=== PATIENT | female | born 1955 | race Caucasian/White ===

== ENCOUNTER → 2016-04-22 | Outpatient (CLI) | payer OTHER ==
[2016-04-22 11:54] LABS: Basophils # (A) 0.1 k/uL (0-0.2); Basophils % (A) 1 %; CH 30.7; CHCM 33.4; Eosinophils # (A) 0.2 k/uL (0-0.7); Eosinophils % (A) 3 %; HCT 41.1 % (34.0-46.0); HDW 2.45; HGB 13.5 gm/dL (11.4-16.0); Luc # (Auto) 0.16; Luc % (Auto) 3; Lymphocytes # (A) 2.1 k/uL (1.0-4.8); Lymphocytes % (A) 35 %; MCH 30.4 pg (25.0-35.0); MCHC 32.9 g/dL (31.0-37.0); MCV 92.2 fL (80.0-100.0); Mean Platelet Volume 7.1; Monocytes # (A) 0.4 k/uL (0-1.0); Monocytes % (A) 7 %; Neutrophils # (A) 3.1 k/uL (1.3-7.7); Neutrophils % (A) 52 %; RBC 4.46 m/uL (3.80-5.40); RDW 12.3 % (11.5-15.5); WBC 6.1 k/uL (3.8-10.6); WBC (Perox) 6.21
== END | disposition home or self-care (01) ==
LOC: LABPAT 11:19
PROVIDERS: ATTEND Obstetrics & Gynecology
DX: Z01.810 Encounter for preprocedural cardiovascular examination (principal); N89.5 Stricture and atresia of vagina
CPT/HCPCS: 85025

== ENCOUNTER 2016-04-28 07:04 | Day surgery (SDC) | payer OTHER ==
[2016-04-18 11:57] VITALS: BMI 28.8
[~2016-04-28 07:04] MED LIST: DEXAMETHASONE SOD PHOSPHATE 10 MG/ML 1 ML VIAL IV ONE; HYDROmorphone 1 MG/ML 1 ML SYRINGE IVP PRN; LACTATED RINGERS 1,000 ML IV SCH; LIDOCAINE 1% 20 ML VIAL (10MG/ML) FOR IV START INTRADERMA PRN; MIDAZOLAM 2 MG/2 ML VIAL IV PRN; ONDANSETRON 4 MG/2 ML VIAL IVP ONE; ceFAZolin 2 GM in SODIUM CHLORIDE 0.9% 100 ML IVPB ONE
[2016-04-28] MEDS ORDERED: ceFAZolin 1,000 MG VIAL ONE (08:29)
[2016-04-28] MEDS ORDERED: SODIUM CHLORIDE 0.9% 100 ML BAG ONE (08:29)
[2016-04-28] MEDS ORDERED: MIDAZOLAM 2 MG/2 ML VIAL ONE (08:29)
[2016-04-28] MEDS ORDERED: fentaNYL (PF) 50 MCG/ML 2 ML AMP ONE (08:29)
[2016-04-28] MEDS ORDERED: SUCCINYLCHOLINE CHLORIDE 100 MG/5 ML SYR IV ONE (08:29)
[2016-04-28] MEDS ORDERED: PROPOFOL 10 MG/ML 20 ML VIAL IV ONE (08:29)
[2016-04-28] MEDS ORDERED: VASOPRESSIN 20 UNIT/ML 1 ML VIAL SQ ONE (08:47)
[2016-04-28] MEDS ORDERED: BACITRACIN 500 UNIT/GM OINT 28.4 GM TUBE TOPICAL ONE (08:54)
--- NOTE | 2016-04-28 09:04 | P.OP ---
Date of Procedure: 04/28/16 Preoperative Diagnosis: Vaginal adhesion Postoperative Diagnosis: Same Procedure(s) Performed: Lysis of vaginal adhesion Surgeon: Cindy Jaime Estimated Blood Loss (ml): 0 IV fluids (ml): 500 Urine output (ml): 25 Pathology: none sent Condition: stable Disposition: PACU Operative Findings: 1 cm Thick vaginal adhesion extending from the anterior to the posterior vaginal wall approximately 2 cm up the vaginal canal from the hymeneal remnant. With lysis, the vaginal cuff is easily visualized and vaginal length and caliber are within normal limits with a history of vaginal hysterectomy. Description of Procedure: After the patient was met preoperatively and all questions were answered, she was taken to the operating room where anesthetic was administered without incident. She was positioned, prepped and draped in the dorsal lithotomy position. The bladder was drained for approximately 25 mL of clear urine. Exam under anesthetic the anterior to posterior vaginal adhesion is easily palpable. Unable to insert a digit past the adhesion laterally on both sides to the apex of the vaginal cuff. The adhesions this proximally 1 cm thick. A bent uterine sound was passed around the adhesion drawing it forward where it can be easily visualized. Dilute vasopressin solution is infused into the adhesion. There is not appear to be any involvement of other structures, specifically bowel or bladder tissue. Scalpel is utilized to cut the adhesion in a horizontal fashion. The anterior vaginal mucosa over the adhesion lysis site is reapproximated with interrupted stitch of 3-0 Vicryl suture. Similarly the posterior vaginal mucosa is superficially closed with 2 interrupted stitches. Retractors were utilized to completely visualize the vaginal canal which appears normal. On digital examination the vaginal length and caliber palpate normal for a postoperative vaginal hysterectomy state. Bacitracin ointment is applied over the anterior and posterior suture sites. The patient was then awoken from anesthetic and transported to the recovery area in stable condition. All counts were correct.
[2016-04-28 09:12] VITALS: TEMP 97.6
[2016-04-28 10:19] VITALS: RESP 18
[2016-04-28 10:44] VITALS: BP 126/85; PULSE 67
== END 2016-04-28 10:59 | disposition home or self-care (01) ==
LOC: OR 07:04
PROVIDERS: ATTEND Obstetrics & Gynecology
DX: N99.2 Postprocedural adhesions of vagina (principal); Z90.710 Acquired absence of both cervix and uterus; J45.909 Unspecified asthma, uncomplicated; K21.9 Gastro-esophageal reflux disease without esophagitis; E07.9 Disorder of thyroid, unspecified; Z79.51 Long term (current) use of inhaled steroids; Z79.899 Other long term (current) drug therapy; Z88.8 Allergy status to other drugs, medicaments and biological substances; Z91.018 Allergy to other foods; Z91.09 Other allergy status, other than to drugs and biological substances
CPT/HCPCS: 58999; J2250; J1100; J2405; J0690; J3010; J0330; J2704

== ENCOUNTER 2016-06-04 13:28 | Inpatient (IN) | payer OTHER ==
[2016-06-04] MEDS ORDERED: HEPARIN SODIUM,PORCINE 10,000 UNIT/ML 1 ML VIAL IV ONE (14:08)
--- NOTE | 2016-06-04 14:11 | ED ---
General Adult HPI - General Chief complaint: Shortness of Breath Stated complaint: Dr Campa/Ajay Clot poss to lungs Time Seen by Provider: 06/04/16 13:50 Source: patient, RN notes reviewed Mode of arrival: wheelchair Limitations: no limitations - History of Present Illness Initial comments: This is a 60-year-old female who presents to the emergency department because she has been told after having a CTA that she has a pulmonary embolism in her left lung. Patient states she's had a chronic cough since last year but more recently it seems to have gotten a little worse and she did have very procedure done to remove vaginal adhesions in April so her primary ordered a CTA and it showed a pulmonary embolism. Patient preferred to come to our hospitalist she came to our hospital for further evaluation. Patient states she does feel short of breath. Patient denies any chest pain or palpitations. Patient denies any fever or chills. Patient denies any lightheadedness or dizziness. Patient denies abdominal pain patient denies nausea vomiting diarrhea. - Related Data Home Medications Medication Instructions Recorded Confirmed Thyroid,Pork [[place] Thyroid] 15 mg PO DAILY 01/09/15 04/28/16 Albuterol Inhaler [Ventolin Hfa 2 puff INHALATION DIRECTED PRN 04/18/1604/28 Inhaler] B Complex-Vit C-Vit E-Zinc [Z-Bec] 1 tab PO DAILY 04/18/16 04/28/16 Bifidobacterium Infantis [Align] 4 mg PO DAILY 04/18/16 04/28/16 Biotin 5 mg PO DAILY 04/18/16 04/28/16 Estradiol Cream [Estrace Cream] 1 applic TOPICAL [place]UTUTH 04/18/16 04/28/16 Famotidine 20 mg PO DAILY 04/18/16 04/28/16 Fluticasone Propionate [Flovent 1 spr EA NOSTRIL DAILY 04/18/16 04/28/16 Hfa 44 mcg] Gabapentin [Neurontin] 300 mg PO DAILY 04/18/16 04/28/16 Imipramine [Tofranil] 7.5 mg PO DAILY 04/18/16 04/28/16 Meloxicam [Mobic] 7.5 mg PO DAILY 04/18/16 04/28/16 diphenhydrAMINE HCL [Benadryl] 25 mg PO DAILY 04/18/16 04/28/16 Previous Rx's Medication Instructions Recorded Estradiol Cream [Estrace Cream 1 gm VAGINAL DAILY #1 tube 04/28/16 0.01%] Allergies Allergy/AdvReac Type Severity Reaction Status Date / Time aloe vera Allergy Anaphylaxis Verified 06/04/16 13:50 diazepam [From Valium] AdvReac Hallucinati Verified 06/04/16 13:50 ons ibuprofen [From Motrin] AdvReac Hallucinati Verified 06/04/16 13:50 ons rofecoxib [From Vioxx] AdvReac Nausea & Verified 06/04/16 13:50 Vomiting & Diarrhea [place]IW[place] Allergy Anaphylaxis Uncoded 06/04/16 13:50 MINT Allergy Rash/Hives Uncoded 06/04/16 13:50 Review of Systems ROS Statement: Those systems with pertinent positive or pertinent negative responses have been documented in the HPI. ROS Other: All systems not noted in ROS Statement are negative. Past Medical History Past Medical History: Asthma, GERD/Reflux, Musculoskeletal Disorder Additional Past Medical History / Comment(s): RSD (REFLEX SYMPATHETIC DYSTROPHY) History of Any Multi-Drug Resistant Organisms: None Reported Past Surgical History: Hernia Repair, Hysterectomy, Orthopedic Surgery, Tonsillectomy Additional Past Surgical History / Comment(s): "nerve clipped in right foot", shoulder sx, knee arthroscopy, RECTOCELE, CYSTOCELE REPAIR, LEFT ANKLE SX, MOLES REMOVED, vaginal adhesion removed Additional Past Anesthesia/Blood Transfusion Reaction / Comment(s): hx of hard time waking up Past Psychological History: No Psychological Hx Reported Smoking Status: Never smoker Past Alcohol Use History: Occasional Past Drug Use History: None Reported - Past Family History Father Family Medical History: Cancer Sister(s) Family Medical History: Cancer General Exam - General Exam Comments Initial Comments: GENERAL: Patient is well-developed and well-nourished. Patient is nontoxic and well- hydrated and is in no acute distress. ENT: Neck is soft and supple. No significant lymphadenopathy is noted. Oropharynx is clear. Moist mucous membranes. Neck has full range of motion without eliciting any pain. EYES: The sclera were anicteric and conjunctiva were pink and moist. Extraocular movements were intact and pupils were equal round and reactive to light. Eyelids were unremarkable. PULMONARY: Unlabored respirations. Good breath sounds bilaterally. No audible rales rhonchi or wheezing was noted. CARDIOVASCULAR: There is a regular rate and rhythm without any murmurs gallops or rubs. ABDOMEN: Soft and nontender with normal bowel sounds. No palpable organomegaly was noted. There is no palpable pulsatile mass. SKIN: Skin is clear with no lesions or rashes and otherwise unremarkable. NEUROLOGIC: Patient is alert and oriented x3. Cranial nerves II through XII are grossly intact. Motor and sensory are also intact. Normal speech, volume and content. Symmetrical smile. MUSCULOSKELETAL: Normal extremities with adequate strength and full range of motion. No lower extremity swelling or edema. No calf tenderness. LYMPHATICS: No significant lymphadenopathy is noted PSYCHIATRIC: Normal psychiatric evaluation. Limitations: no limitations Course Vital Signs 06/04/16 06/04/16 13:46 15:26 Temperature 97.8 F 97.9 F Pulse Rate 74 69 Respiratory 18 16 Rate Blood Pressure 158/74 145/75 O2 Sat by Pulse 97 98 Oximetry Medical Decision Making - Medical Decision Making EKG shows normal sinus rhythm at 61 bpm DC interval is 176 QRS is 78 QT interval 396 QTC is 398. Patient has no ST segment elevation or depression or T -wave abdomen is noted. I started the patient on high-dose heparin because of the PE I spoke with Dr. Wadsworth I admitted the patient I wrote admitting orders. I consult to Dr. Coelho - Lab Data Result diagrams: 06/04/16 14:00 06/04/16 14:00 Lab Results 06/04/16 06/04/16 06/04/16 Range/Units 14:00 14:00 14:00 WBC 5.3 (3.8-10.6) k/uL RBC 4.45 (3.80-5.40) m/uL Hgb 13.5 (11.4-16.0) gm/dL Hct 40.3 (34.0-46.0) % MCV 90.6 (80.0-100.0) fL MCH 30.4 (25.0-35.0) pg MCHC 33.6 (31.0-37.0) g/dL RDW 12.8 (11.5-15.5) % Plt Count 303 (150-450) k/uL Neutrophils % 32 % Lymphocytes % 52 % Monocytes % 7 % Eosinophils % 5 % Basophils % 1 % Neutrophils # 1.7 (1.3-7.7) k/uL Lymphocytes # 2.7 (1.0-4.8) k/uL Monocytes # 0.4 (0-1.0) k/uL Eosinophils # 0.3 (0-0.7) k/uL Basophils # 0.0 (0-0.2) k/uL Manual Slide Review Performed RBC Morphology Normal PT (9.0-12.0) sec INR (<1.1) APTT (22.0-30.0) sec Sodium 140 (137-145) mmol/L Potassium 4.1 (3.5-5.1) mmol/L Chloride 103 (98-107) mmol/L Carbon Dioxide 27 (22-30) mmol/L Anion Gap 10 mmol/L BUN 22 H (7-17) mg/dL Creatinine 0.94 (0.52-1.04) mg/dL Est GFR (MDRD) Af Amer >60 (>60 ml/min/1.73 sqM) Est GFR (MDRD) Non-Af >60 (>60 ml/min/1.73 sqM) Glucose 73 L (74-99) mg/dL Calcium 9.9 (8.4-10.2) mg/dL Total Bilirubin 0.5 (0.2-1.3) mg/dL AST 25 (14-36) U/L ALT 30 (9-52) U/L Alkaline Phosphatase 93 (38-126) U/L Total Creatine Kinase 93 (30-135) U/L CK-MB (CK-2) 0.7 (0.0-2.4) ng/mL CK-MB (CK-2) Rel Index 0.8 Troponin I <0.012 (0.000-0.034) ng/mL Total Protein 7.1 (6.3-8.2) g/dL Albumin 4.2 (3.5-5.0) g/dL 06/04/16 Range/Units 14:00 WBC (3.8-10.6) k/uL RBC (3.80-5.40) m/uL Hgb (11.4-16.0) gm/dL Hct (34.0-46.0) % MCV (80.0-100.0) fL MCH (25.0-35.0) pg MCHC (31.0-37.0) g/dL RDW (11.5-15.5) % Plt Count (150-450) k/uL Neutrophils % % Lymphocytes % % Monocytes % % Eosinophils % % Basophils % % Neutrophils # (1.3-7.7) k/uL Lymphocytes # (1.0-4.8) k/uL Monocytes # (0-1.0) k/uL Eosinophils # (0-0.7) k/uL Basophils # (0-0.2) k/uL Manual Slide Review RBC Morphology PT 11.0 (9.0-12.0) sec INR 1.1 (<1.1) APTT 23.0 (22.0-30.0) sec Sodium (137-145) mmol/L Potassium (3.5-5.1) mmol/L Chloride (98-107) mmol/L Carbon Dioxide (22-30) mmol/L Anion Gap mmol/L BUN (7-17) mg/dL Creatinine (0.52-1.04) mg/dL Est GFR (MDRD) Af Amer (>60 ml/min/1.73 sqM) Est GFR (MDRD) Non-Af (>60 ml/min/1.73 sqM) Glucose (74-99) mg/dL Calcium (8.4-10.2) mg/dL Total Bilirubin (0.2-1.3) mg/dL AST (14-36) U/L ALT (9-52) U/L Alkaline Phosphatase (38-126) U/L Total Creatine Kinase (30-135) U/L CK-MB (CK-2) (0.0-2.4) ng/mL CK-MB (CK-2) Rel Index Troponin I (0.000-0.034) ng/mL Total Protein (6.3-8.2) g/dL Albumin (3.5-5.0) g/dL Critical Care Time Critical Care Time: Yes Total Critical Care Time: 35 Disposition Clinical Impression: Pulmonary embolism Disposition: ADMITTED IP TO THIS [facility] Time of Disposition: 15:47
[2016-06-04] MEDS: HEPARIN SODIUM,PORCINE/D5W PMX 25,000 UNIT in DEXTROSE/WATER 1 500ML.BAG IV SCH (14:33)
[2016-06-04 14:36] LABS: Basophils % (A) 1 %; CHCM 34.4; Eosinophils # (A) 0.3 k/uL (0-0.7); Eosinophils % (A) 5 %; HCT 40.3 % (34.0-46.0); HGB 13.5 gm/dL (11.4-16.0); Luc % (Auto) 4; Lymphocytes # (A) 2.7 k/uL (1.0-4.8); Lymphocytes % (A) 52 %; MCH 30.4 pg (25.0-35.0); MCHC 33.6 g/dL (31.0-37.0); MCV 90.6 fL (80.0-100.0); Mean Platelet Volume 6.7; Monocytes # (A) 0.4 k/uL (0-1.0); Monocytes % (A) 7 %; Neutrophils # (A) 1.7 k/uL (1.3-7.7); Neutrophils % (A) 32 %; RBC 4.45 m/uL (3.80-5.40); RDW 12.8 % (11.5-15.5); WBC 5.3 k/uL (3.8-10.6); WBC (Perox) 5.01
[2016-06-04 14:44] LABS: INR 1.1 (<1.1)
[2016-06-04 14:49] LABS: ALT 30 U/L (9-52); AST 25 U/L (14-36); Alkaline Phosphatase 93 U/L (38-126); Anion Gap 10 mmol/L; Blood Urea Nitrogen 22 mg/dL (7-17); Calcium 9.9 mg/dL (8.4-10.2); Carbon Dioxide 27 mmol/L (22-30); Chloride 103 mmol/L (98-107); Glucose 73 mg/dL (74-99); Non-African American GFR(MDRD) >60 (>60 ml/min/1.73 sqM); Potassium 4.1 mmol/L (3.5-5.1); Sodium 140 mmol/L (137-145); Total Bilirubin 0.5 mg/dL (0.2-1.3); Total Protein 7.1 g/dL (6.3-8.2)
[2016-06-04 14:56] LABS: Creatine Kinase 93 U/L (30-135)
[2016-06-04 15:08] LABS: Creatine Kinase MB 0.7 ng/mL (0.0-2.4); Troponin I <0.012 ng/mL (0.000-0.034)
[2016-06-04 15:14] LABS: Manual Review Performed; RBC Morphology Normal
[2016-06-04] MEDS ORDERED: SODIUM CHLORIDE 0.9% 1,000 ML IV ONE (15:47)
[2016-06-04] MEDS ORDERED: MELATONIN 5 MG TABLET PO SCH (21:45)
[2016-06-04] MEDS ORDERED: CLOTRIMAZOLE 1% CREAM 15 GM TUBE TOPICAL PRN (22:39)
--- NOTE | 2016-06-04 23:13 | HP ---
DATE OF ADMISSION: 06/04/2016 PRESENTING COMPLAINT: Cough. HISTORY OF PRESENTING COMPLAINT: This is a 60-year-old patient of Dr. Amaral. Chronic stable medical conditions include asthma, GERD, mitral valve prolapse, RSD, hypothyroid, osteoarthritis. Patient underwent vaginal scar tissue removal and a week following after that after she got out of the hospital, she is having an increasing amount of cough. Patient had a chest CT angiogram done and was found to have a small PE; hence, patient was transferred down here from [facility], started on IV heparin. Patient did have some swelling of the legs earlier in the week. REVIEW OF SYSTEMS: CONSTITUTIONAL: Tired. HEENT: None. RESPIRATORY: As above. CARDIOVASCULAR: None. GASTROINTESTINAL: Heartburn. GENITOURINARY: None. MUSCULOSKELETAL: Pain in multiple joints. DERMATOLOGICAL: None. HEMATOLOGICAL: None. LYMPHATIC: None. PSYCHIATRY: None. NEUROLOGICAL: None. Past history of asthma, GERD, mitral valve prolapse, osteoarthritis of the hands, hypothyroid, reflex sympathetic dystrophy, diverticulitis, irritable bowel syndrome, urinary incontinence, rectocele, hemorrhoids. PAST SURGICAL HISTORY: Bladder surgery, hernia repair, hysterectomy, tonsillectomy, shoulder surgery, rectocele, cystocele repair, vaginal adhesions removed, umbilical hernia repair. SOCIAL HISTORY: . Alcohol occasionally. No smoking. Family history of cancer. HOME MEDICATIONS: 1. Tofranil 25 mg p.o. daily. 2. Flovent HFA 2 puffs b.i.d. 3. Lotrimin 1 application topical daily p.r.n. 4. Estrace 0.01% vaginal every 7 days. 5. Calcium with Vitamin D3 1 tablet daily. 6. Ventolin HFA 2 puffs q.4 p.r.n. 7. Flonase 1 spray each nostril daily. 8. Pepcid 20 mg p.o. daily. 9. Biotin 5 mg p.o. daily. 10. Align 4 mg p.o. daily. 11. Benadryl 50 mg p.o. q.h.s. 12. Neurontin 300 mg p.o. daily. 13. Z-Douglas 1 tablet p.o. daily. 14. [place] thyroid 30 mg p.o. daily. 15. Mobic 7.5 mg p.o. daily. ALLERGIES TO ALOE VERA, ( ), VALIUM, IBUPROFEN, VIOXX, ( ). On examination, temperature 97.4, pulse 55, respirations 18, blood pressure 162/81, pulse ox 98% on 2L. GENERAL APPEARANCE: Elderly female; sitting up, not in distress. EYES: Pupils equal. Conjunctivae normal. HEENT: External appearance of nose and ears normal. Oral cavity normal. NECK: JVD not raised. Mass not palpable. RESPIRATORY: Effort normal. LUNGS: Fair air entry. CARDIOVASCULAR: First and second sounds normal. Minimal edema. ABDOMEN: Soft, nontender. Liver and spleen not palpable. LYMPHATIC: No lymph node palpable in neck or axillae. PSYCHIATRY: Alert and oriented x3. Mood and affect normal. NEUROLOGICAL: Pupils equal. Cranial nerves grossly intact. Power and sensation grossly intact. INVESTIGATIONS: White count 5.3, hemoglobin 13.5. Potassium 4.1. BUN 22, creatinine 0.94. CT scan of the chest revealed a small PE. ASSESSMENT: 1. Acute pulmonary embolism a week following vaginal surgery. 2. Mild intermittent asthma. 3. Gastroesophageal reflux disease. 4. Primary osteoarthritis of the hands and knees. 5. Hypothyroidism. 6. Reflex sympathetic dystrophy, chronic of the right leg. 7. Chronic urinary stress incontinence. PLAN: Patient's home medication are resumed, put on IV heparin. Care was discussed with the patient. Pulmonary was consulted. Questions were answered.
[2016-06-04 23:41] VITALS: RESP 16
[2016-06-05 03:13] VITALS: PULSE 74
[2016-06-05] MEDS: HEPARIN SODIUM,PORCINE/D5W PMX 25,000 UNIT in DEXTROSE/WATER 1 500ML.BAG IV SCH (07:36)
[2016-06-05] MEDS ORDERED: GABAPENTIN 300 MG CAP PO SCH (09:00)
[2016-06-05] MEDS ORDERED: IMIPRAMINE 25 MG TAB PO SCH (09:00)
[2016-06-05] MEDS ORDERED: FAMOTIDINE 20 MG TAB PO SCH (09:00)
[2016-06-05] MEDS ORDERED: THYROID, PORK 30 MG TAB PO SCH (09:00)
--- NOTE | 2016-06-05 10:51 | US ---
EXAMINATION TYPE: US venous doppler duplex LE BI DATE OF EXAM: 06/05/2016 9:52 AM COMPARISON: NONE CLINICAL HISTORY: poss dvt. Left leg numbness, PE diagnosed yesterday, SOB, Patient on Heparin SIDE PERFORMED: bilateral VESSELS IMAGED: External Iliac Vein (EIV) Common Femoral Vein Deep Femoral Vein Greater Saphenous Vein * Femoral Vein Popliteal Vein Small Saphenous Vein * Proximal Calf Veins (* superficial vessels) FINDINGS: Right Leg: NO evidence of DVT Left Leg: NO evidence of DVT. Scanned left outer thigh (patient feels a lump), hyperechoic area note d = 2.4 x 1.0 x 2.2cm IMPRESSION: 1. No evidence of DVT as visualized. 2. Hyperechoic mass within the subcutaneous tissues most likely related to lipoma. Correlate clinical ly and if necessary with MRI.
--- NOTE | 2016-06-05 11:50 | P.CNPUL ---
History of Present Illness Consult date: 06/05/16 Reason for consult: dyspnea, chest pain, COPD Chief complaint: Shortness of breath, cough, chest pain History of present illness: This is a 60-year-old female who presented to the emergency department because she's been told on a CT angiogram that she had a pulmonary embolism. Apparently was in her left lung. She apparently saw her nurse practitioner physicians esl instructional assistant up in [facility]. She apparently was being worked up there and apparently had a CT pulmonary embolism. She was sent down here for evaluation. She was seen in the emergency room by our doctors. Feeling better today. She does give a history of spontaneous abortions in the past. 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 That raises the specter of antiphospholipid antibody syndrome. In addition, she really had no other major triggers or provoking factors at this time. Her nurse practitioner/PA worked with Dr. Amaral. We will go ahead and request a consultation with hematology. The patient can decide between a factor X a inhibitor versus Coumadin. A friend of the patient thinks that Coumadin might be better for her because she falls a lot and should she start bleeding, we would be able to reverse the Coumadin much more quickly. Review of Systems A 12 point review of system is positive for shortness of breath cough and chest pain. No symptoms have improved. She seemed pretty comfortable. Not in any supplemental oxygen. Past Medical History Past Medical History: Asthma, GERD/Reflux, Mitral Valve Prolapse (MVP), Musculoskeletal Disorder, Osteoarthritis (OA), Pneumonia, Thyroid Disorder Additional Past Medical History / Comment(s): 06-04-16 PE, RSD (REFLEX SYMPATHETIC DYSTROPHY), RHEUMATIC FEVER A CHILD, MURMUR, BRONCHITIS, DIVERTICULITIS, IBS, UTI, INCONT OF URINE, BEGINNINGS OF GLAUCOMA, HAS HAD RECTAL BLEEDING IN PAST HX RECTOCELE,HEMORRHOIDS,"CONSTIPATION/ CAUSED A SMALL TEAR IN RECTOCELE HAD SX TO REPAIR" History of Any Multi-Drug Resistant Organisms: None Reported Past Surgical History: Bladder Surgery, Hernia Repair, Hysterectomy, Orthopedic Surgery, Tonsillectomy Additional Past Surgical History / Comment(s): "nerve clipped in right foot", shoulder sx, knee arthroscopy, RECTOCELE, CYSTOCELE REPAIR, LEFT ANKLE CYST REMOVED, MOLES REMOVED-BENIGN, vaginal adhesion removed, UMBILICAL HERNIA, RT KNEE MENISCUS.LATERAL RELEASE Additional Past Anesthesia/Blood Transfusion Reaction / Comment(s): hx of hard time waking up Past Psychological History: No Psychological Hx Reported Smoking Status: Never smoker Past Alcohol Use History: Occasional Past Drug Use History: None Reported - Past Family History Father Family Medical History: Cancer Sister(s) Family Medical History: Cancer Medications and Allergies Home Medications Medication Instructions Recorded Confirmed Type Albuterol Inhaler [Ventolin Hfa 2 puff INHALATION RT-Q4H PRN 04/18/16 06/04/16 History Inhaler] B Complex-Vit C-Vit E-Zinc [Z-Bec] 1 tab PO DAILY 04/18/16 06/04/16 History Bifidobacterium Infantis [Align] 4 mg PO DAILY 04/18/16 06/04/16 History Biotin 5 mg PO DAILY 04/18/16 06/04/16 History Famotidine 20 mg PO DAILY 04/18/16 06/04/16 History Fluticasone Propionate [Flovent 2 puff INHALATION RT-BID 04/18/16 06/04/16 History Hfa 44 mcg] Gabapentin [Neurontin] 300 mg PO DAILY 04/18/16 06/04/16 History Meloxicam [Mobic] 7.5 mg PO DAILY 04/18/16 06/04/16 History diphenhydrAMINE HCL [Benadryl] 50 mg PO HS 04/18/16 06/04/16 History Calcium Carbonate/Vitamin D3 1 tab PO DAILY 06/04/16 06/04/16 History [Calcium 600-Vit D3 200 Tablet] Clotrimazole Cream [Lotrimin Cream] 1 applic TOPICAL DAILY PRN 06/04/16 History Estradiol Cream [Estrace Cream 1 applic VAGINAL Q7D 06/04/16 06/04/16 History 0.01%] Fluticasone Nasal [place] [Flonase 1 spr EA NOSTRIL DAILY 06/04/16 06/04/16 History Nasal [place]] Imipramine HCl [Tofranil] 25 mg PO DAILY 06/04/16 06/04/16 History Thyroid, Pork [[place] Thyroid] 30 mg PO DAILY 06/04/16 06/04/16 History Allergies Allergy/AdvReac Type Severity Reaction Status Date / Time aloe vera Allergy Anaphylaxis Verified 06/04/16 15:59 kiwi Allergy Anaphylaxis Verified 06/04/16 15:59 diazepam [From Valium] AdvReac Hallucinati Verified 06/04/16 15:59 ons ibuprofen [From Motrin] AdvReac Hallucinati Verified 06/04/16 15:59 ons rofecoxib [From Vioxx] AdvReac Nausea & Verified 06/04/16 15:59 Vomiting & Diarrhea MINT Allergy Rash/Hives Uncoded 06/04/16 13:50 Physical Exam Osteopathic Statement: *. No significant issues noted on an osteopathic structural exam other than those noted in the History and Physical/Consult. Vitals: Vital Signs Temp Pulse Pulse Resp BP BP Pulse Ox 06/05/16 07:41 97.6 F 65 16 125/76 98 06/05/16 03:12 97.0 F L 74 16 131/72 99 06/04/16 23:39 70 16 117/62 98 06/04/16 20:00 97.1 F L 83 18 116/70 97 06/04/16 16:52 97.4 F L 65 18 163/81 98 Intake and Output 06/04/16 06/05/16 06/05/16 22:59 06:59 14:59 Intake Total 197.45 200.012 273.858 Output Total 1650 Balance 197.45 -1449.988 273.858 Intake: Intake, IV Titration 197.45 200.012 33.858 Amount Heparin Sodium,Porcine/ 197.45 200.012 33.858 D5w Pmx 25,000 unit In Dextrose/Water 1 500ml. bag @ 18 UNITS/KG/HR 28. 41 mls/hr IV .[id number] [facility] Rx#:[id number] Oral 240 Output: Urine 1650 Other: # Voids 2 Weight 78.7 kg No acute distress, oriented 3. HEENT examination is grossly unremarkable. Next Neck is Supple. Full range of motion. No adenopathy. Neck veins are flat. Cardiovascular examination reveals regular rhythm rate. S1 and S2 normal. There is no murmur. Lungs reveal relatively clear breath sounds. No wheezes rhonchi or crackles. Abdomen soft. Extremities are intact. Results - Laboratory Findings CBC and BMP: 06/04/16 14:00 06/04/16 14:00 PT/INR, D-dimer PT 11.0 sec (9.0-12.0) 06/04/16 14:00 INR 1.1 (<1.1) 06/04/16 14:00 Abnormal lab findings: Abnormal Labs 06/04/16 06/05/16 06/05/16 20:40 03:08 10:19 APTT 140.9 H* 78.4 H 68.2 H - Diagnostic Findings Chest x-ray: image reviewed CT scan - chest: image reviewed (X-rays labs and medications are reviewed.) Assessment and Plan (1) Pulmonary embolism Status: Acute Plan: Plan The patient's currently on IV heparin. She's trying to make a decision between a factor X a inhibitor versus Coumadin which is of vitamin K antagonist. There is some advantages and disadvantages of both. I explained those to her today. In addition, we will have hematology see her. This is because of apparently she 's had multiple spontaneous abortions. He raises the possibility of antiphospholipid antibody syndrome. I think she should be treated for about 6 months. If this appears to be an unprovoked clot. Additional recommendations suggestions are forthcoming. I did give the family my card. They should follow with me so we can do a follow-up CAT scan in 8-10 weeks after the first CAT scan. Additional recommendations and suggestions are forthcoming. Time with Patient: Greater than 30
[2016-06-05 12:20] VITALS: BP 141/76; TEMP 98.1
[2016-06-05] MEDS ORDERED: RIVAROXABAN 15 MG TAB PO SCH (17:30)
[2016-06-06 07:10] LABS: Cardiolipin Ab IgG <9.0 GPL (<15); Cardiolipin Ab IgM <9.0 MPL (<12.5)
[2016-06-06] MEDS ORDERED: THYROID, PORK 30 MG TAB PO SCH (07:30)
[2016-06-06] MEDS ORDERED: GABAPENTIN 300 MG CAP PO SCH (07:30)
--- NOTE | 2016-06-06 09:40 | DS ---
DATE OF ADMISSION: 06/04/2016 DATE OF DISCHARGE: 06/05/2016 FINAL DIAGNOSIS(ES): 1. Acute pulmonary embolism in a week following vaginal surgery that is provoked pulmonary embolism. 2. Mild intermittent asthma. 3. Gastroesophageal reflux disease. 4. Primary osteoarthritis of the hands and knees. 5. Hypothyroidism. 6. Reflex sympathetic dystrophy, chronic of the right leg. 7. Chronic urinary stress incontinence. HOSPITAL COURSE: The patient following a vaginal scar tissue surgery a week following having more cough, presented to us, CT scan confirmed PE. The patient has a history of some miscarriages previously; hence, hematology consult was done. Dr. Zaman has ordered some blood work and will see the patient as an outpatient. The patient is doing well. On exam, lungs are clear. CARDIOVASCULAR: First and second seconds are normal. DISCHARGE MEDICATIONS: 1. Ventolin HFA 2 puffs q.4 p.r.n. 2. Z-Douglas 1 tablet p.o. daily. 3. ( ) 4 mg daily. 4. Biotin 5 mg p.o. daily. 5. Pepcid 20 mg p.o. daily. 6. Flovent 2 puffs b.i.d. 7. Neurontin 300 mg p.o. daily. 8. Calcium 600 mg Vitamin D3 1 tablet daily. 9. Lotrimin topical daily p.r.n. 10. Estrace vaginal q.7 days. 11. Flonase one spray each nostril daily. 12. Tofranil 25 mg p.o. daily. 13. [place] thyroid 30 mg p.o. daily. 14. Melatonin 5 mg p.o. q.h.s. 15. Xarelto 15 mg p.o. b.i.d. with meals and then 20 milligrams a day. Follow-up with Dr. Amaral in 3 days. Follow up with Dr. Zaman in 10 days. Care was discussed with the patient. Discharge planning more than 35 minutes.
[2016-06-06 15:01] LABS: Hexagonal Phase Neutralization Negative (Negative)
[2016-06-14 05:21] LABS: Mis test requested (Blood) Beta-2 Glycoprot 1Ab
== END 2016-06-05 19:15 | disposition home or self-care (01) | DRG 300 ==
LOC: EC 13:28 → 6SEL 15:47
PROVIDERS: ADMIT Hospitalist; ATTEND Hospitalist
DX: T81.718A Complication of other artery following a procedure, not elsewhere classified, initial encounter (principal); G90.521 Complex regional pain syndrome I of right lower limb; I26.99 Other pulmonary embolism without acute cor pulmonale; E03.9 Hypothyroidism, unspecified; J45.20 Mild intermittent asthma, uncomplicated; I34.1 Nonrheumatic mitral (valve) prolapse; R60.0 Localized edema; M17.0 Bilateral primary osteoarthritis of knee; K58.9 Irritable bowel syndrome, unspecified; N39.3 Stress incontinence (female) (male); R29.6 Repeated falls; K21.9 Gastro-esophageal reflux disease without esophagitis; M19.041 Primary osteoarthritis, right hand; M19.042 Primary osteoarthritis, left hand; K64.9 Unspecified hemorrhoids; H40.9 Unspecified glaucoma; Z90.710 Acquired absence of both cervix and uterus; Z91.81 History of falling; Z98.890 Other specified postprocedural states; Z87.01 Personal history of pneumonia (recurrent); Z87.440 Personal history of urinary (tract) infections; Z80.9 Family history of malignant neoplasm, unspecified; Z87.09 Personal history of other diseases of the respiratory system; Z86.19 Personal history of other infectious and parasitic diseases; Z87.19 Personal history of other diseases of the digestive system; Z88.6 Allergy status to analgesic agent; Z88.8 Allergy status to other drugs, medicaments and biological substances; Z91.018 Allergy to other foods; Z91.048 Other nonmedicinal substance allergy status; Z87.42 Personal history of other diseases of the female genital tract; Z79.899 Other long term (current) drug therapy; Z79.51 Long term (current) use of inhaled steroids; Z79.890 Hormone replacement therapy; Z79.1 Long term (current) use of non-steroidal anti-inflammatories (NSAID)
CPT/HCPCS: 36415; 80053; 82550; 82553; 84484; 85025; 85598; 85610; 85613; 85730; 85732; 86146; 86147; 93005; 93970; 96365; 96366; 96376; 99291

== ENCOUNTER → 2016-10-09 | Outpatient (CLI) | payer OTHER ==
--- NOTE | 2016-10-10 13:02 | MM ---
Reason for exam: screening (asymptomatic). Last mammogram was performed 1 year ago. History: Family history of breast cancer in 2 grandmothers and breast cancer in sister at age 55. Taking estrogen for 9 years. Physical Findings: A clinical breast exam by your physician is recommended on an annual basis and results should be correlated with mammographic findings. MG Screening Mammo w CAD Bilateral CC and MLO view(s) were taken. Prior study comparison: September 28, 2015, bilateral MG screening mammo w CAD. March 06, 2005, bilateral screening mammogram w/CAD. There are scattered fibroglandular densities. Finding: There is a 7 mm circumscribed round mass in the lower inner quadrant of the right breast. New finding since September 28, 2015. ASSESSMENT: Incomplete: need additional imaging evaluation, BI-RAD 0 RECOMMENDATION: Special view mammogram of the right breast. If lesion persists on supplemental views, image directed ultrasound is recommended. [facility] will attempt to contact patient to return for supplemental views and ultrasound if indicated.
== END | disposition home or self-care (01) ==
LOC: RADMAMWWP 08:42
PROVIDERS: ATTEND Family Medicine
DX: Z12.31 Encounter for screening mammogram for malignant neoplasm of breast (principal)

== ENCOUNTER → 2016-10-16 | Outpatient (CLI) | payer OTHER ==
--- NOTE | 2016-10-16 11:24 | MM ---
Reason for exam: additional evaluation requested from abnormal screening. Last mammogram was performed less than 1 month ago. History: Patient is postmenopausal. Family history of breast cancer in maternal grandmother at age 60, breast cancer in paternal grandmother, and breast cancer in sister at age 55. Took hormonal contraceptives beginning at age 20. Taking estrogen for 9 years. Physical Findings: Nurse did not find any significant physical abnormalities on exam. MG 3D Work Up W/Cad RT CC, MLO, LM, spot compression MLO, and spot compression CC view(s) were taken of the right breast. Prior study comparison: October 09, 2016, bilateral MG screening mammo w CAD. September 28, 2015, bilateral MG screening mammo w CAD. There are scattered fibroglandular densities. Finding: There is a typically benign equal density (isodense), circumscribed round mass located 4 cm from the nipple in the lower inner quadrant, middle position of the right breast. New finding since September 28, 2015. These results were verbally communicated with the patient and result sheet given to the patient on 10/16/16. ASSESSMENT: Incomplete: need additional imaging evaluation, BI-RAD 0 RECOMMENDATION: Ultrasound of the right breast.
--- NOTE | 2016-10-16 11:26 | USB ---
Reason for exam: additional evaluation requested from abnormal screening. History: Patient is postmenopausal. Family history of breast cancer in maternal grandmother at age 60, breast cancer in paternal grandmother, and breast cancer in sister at age 55. Took hormonal contraceptives beginning at age 20. Taking estrogen for 9 years. US Breast Workup Limited RT Right breast ultrasound demonstrates a 0.4 x 0.3 x 0.6cm lobular, cystic lesion at 4 o'clock, correlated with mammographic findings. These results were verbally communicated with the patient and result sheet given to the patient on 10/16/16. ASSESSMENT: Benign, BI-RAD 2 RECOMMENDATION: Return to routine screening mammogram schedule for both breasts.
== END ==
LOC: RADMAMWWP 08:48
PROVIDERS: ATTEND Family Medicine
DX: R92.8 Other abnormal and inconclusive findings on diagnostic imaging of breast (principal)
CPT/HCPCS: 76642; G0206; G0279

== ENCOUNTER → 2017-02-25 | Outpatient (CLI) | payer OTHER ==
--- NOTE | 2017-02-25 10:33 | XR ---
EXAMINATION TYPE: XR hand complete LT, XR wrist complete LT DATE OF EXAM: 02/25/2017 CLINICAL HISTORY: pain TECHNIQUE: Frontal, lateral and oblique images of the left hand are obtained. COMPARISON: None. FINDINGS: There is no acute fracture/dislocation evident. The joint spaces appear within normal limi ts. The overlying soft tissue appears unremarkable. IMPRESSION: There is no acute fracture or dislocation. ICD 10 NO FRACTURE, INITIAL EVALUATION EXAMINATION TYPE: XR hand complete LT, XR wrist complete LT DATE OF EXAM: 02/25/2017 CLINICAL HISTORY: pain TECHNIQUE: Frontal, lateral and oblique images of the left wrist are obtained. COMPARISON: None. FINDINGS: There is no acute fracture/dislocation evident. The joint spaces appear within normal [place] its. The overlying soft tissue appears unremarkable. IMPRESSION: There is no acute fracture or dislocation seen. ICD 10 NO FRACTURE, INITIAL EVALUATION
== END | disposition home or self-care (01) ==
LOC: RADXRMAIN 10:13
PROVIDERS: ATTEND Emergency Medicine
DX: S67.22XA Crushing injury of left hand, initial encounter (principal); S67.32XA Crushing injury of left wrist, initial encounter

== ENCOUNTER → 2017-10-30 | Outpatient (CLI) | payer OTHER ==
--- NOTE | 2017-11-02 12:41 | MM ---
Reason for exam: screening (asymptomatic). Last mammogram was performed 1 year ago. History: Patient is postmenopausal. Family history of breast cancer in maternal grandmother at age 60, breast cancer in paternal grandmother, and breast cancer in sister at age 55. Took hormonal contraceptives beginning at age 20. Taking estrogen for 9 years. Physical Findings: A clinical breast exam by your physician is recommended on an annual basis and results should be correlated with mammographic findings. MG 3D Screening Mammo W/Cad Bilateral CC and MLO view(s) were taken. Prior study comparison: October 16, 2016, right breast MG 3d work up w/cad RT. October 09, 2016, bilateral MG screening mammo w CAD. There are scattered fibroglandular densities. There are benign appearing round, oval, circumscribed bilateral stable masses back to 2016. No suspicious abnormality. No significant changes when compared with prior studies. ASSESSMENT: Benign, BI-RAD 2 RECOMMENDATION: Routine screening mammogram of both breasts in 1 year.
== END | disposition home or self-care (01) ==
LOC: RADMAMWWP 13:13
PROVIDERS: ATTEND Family Medicine
DX: Z12.31 Encounter for screening mammogram for malignant neoplasm of breast (principal)
CPT/HCPCS: 77063; 77067

== ENCOUNTER → 2018-11-12 | Outpatient (CLI) | payer OTHER ==
--- NOTE | 2018-11-16 15:49 | MM ---
Reason for exam: screening (asymptomatic). Last mammogram was performed 1 year ago. History: Patient is postmenopausal. Family history of breast cancer in maternal grandmother at age 60, breast cancer in paternal grandmother, and breast cancer in sister at age 55. Took hormonal contraceptives beginning at age 20. Took estrogen for 9 years. MG 3D Screening Mammo W/Cad Bilateral CC and MLO view(s) were taken. Prior study comparison: October 30, 2017, bilateral MG 3d screening mammo w/cad. October 16, 2016, right breast MG 3d work up w/cad RT. There are scattered fibroglandular densities. Two areas of chronic nodularity in the right breast. In the left breast anterior upper outer quadrant a circumscribed nodularity increased in size from 2017, a benign cyst is suspected however a 6 month follow up is recommended. ASSESSMENT: Probably benign, BI-RAD 3 RECOMMENDATION: Follow-up diagnostic mammogram of the left breast in 6 months.
== END | disposition home or self-care (01) ==
LOC: RADMAMWWP 09:06
PROVIDERS: ATTEND Family Medicine
DX: Z12.31 Encounter for screening mammogram for malignant neoplasm of breast (principal)
CPT/HCPCS: 77063; 77067

== ENCOUNTER → 2019-04-25 | Outpatient (CLI) | payer OTHER ==
--- NOTE | 2019-04-25 13:58 | CT ---
EXAMINATION TYPE: CT cervical spine wo con DATE OF EXAM: 04/25/2019 COMPARISON: 04/26/2010 HISTORY: 63-year-old female with pain after Sprain of ligaments of cervical spine TECHNIQUE: Contiguous axial scanning of the cervical spine without IV contrast. Coronal and sagittal reconstructions performed. CT DLP: 327.6 mGycm Automated exposure control for dose reduction was used. FINDINGS: No craniocervical junction is remotely, predental space widening, or prevertebral soft tissue swellin g. Trace grade 1 anterolisthesis at C3-C4 and C4-C5 unchanged from 2010. Hypertrophic facet arthropathy upper to mid cervical spine and uncovertebral joint arthropathy mid to lower cervical spine. Moderate degenerative disc disease C5-C6 with disc osteophyte complex mildly narrowing the spinal can al. No acute fracture of the cervical spine. At C3-C4, moderate right neural foraminal stenosis. At C5-C6, moderate left and kgwi-[id number] righ t neuroforaminal stenosis. Biapical pleural-parenchymal scarring. IMPRESSION: 1. NO PREVERTEBRAL EDEMA OR ABNORMAL DISC SPACE WIDENING. 2. TRACE GRADE 1 ANTEROLISTHESES AT C3-C4 AND C4-C5 ARE ON A DEGENERATIVE BASIS, UNCHANGED FROM 2010. 3. MODERATE SCATTERED SPONDYLOTIC CHANGE WITH MILD SPINAL CANAL STENOSIS AT C5-C6 AND VARIABLE MILD-T O-MODERATE NEUROFORAMINAL NARROWING OUTLINED ABOVE.
--- NOTE | 2019-04-25 13:59 | XR ---
EXAMINATION TYPE: XR knee complete LT DATE OF EXAM: 04/25/2019 COMPARISON: NONE HISTORY: Pain TECHNIQUE: Four views are submitted. FINDINGS: Joint spaces are preserved. Osseous structures are intact. Small amount of fluid in the suprapatella r bursa. There is a spur involving the upper margin patella with well-corticated ossific density supe rior to the patella. IMPRESSION: 1. No acute fracture
--- NOTE | 2019-04-25 14:00 | XR ---
EXAMINATION TYPE: XR shoulder complete RT DATE OF EXAM: 04/25/2019 COMPARISON: NONE HISTORY: Pain TECHNIQUE: Three views are submitted. FINDINGS: The osseous structures are intact. There is no acute fracture or dislocation. Mild arthropathy AC josy int.. IMPRESSION: 1. No acute process. Mild arthropathy AC joint.
--- NOTE | 2019-04-25 14:01 | XR ---
EXAMINATION TYPE: XR thoracic spine complete DATE OF EXAM: 04/25/2019 COMPARISON: NONE HISTORY: Pain Alignment is anatomic. There is no compression deformities. There is a scoliotic curvature of the ve rtebral column. Multilevel mild degenerative disc disease. No compression deformities. IMPRESSION: 1. Multilevel mild degenerative disc disease
== END | disposition home or self-care (01) ==
LOC: RADCTMAIN 13:05
PROVIDERS: ATTEND Emergency Medicine
DX: M48.02 Spinal stenosis, cervical region (principal); M43.12 Spondylolisthesis, cervical region; M47.812 Spondylosis without myelopathy or radiculopathy, cervical region; S80.02XA Contusion of left knee, initial encounter; M19.011 Primary osteoarthritis, right shoulder; M51.34 Other intervertebral disc degeneration, thoracic region
CPT/HCPCS: 72072; 72125

== ENCOUNTER → 2019-11-22 | Outpatient (CLI) | payer OTHER ==
--- NOTE | 2019-11-28 09:11 | MM ---
Reason for exam: screening (asymptomatic). Last mammogram was performed 1 year ago. History: Patient is postmenopausal. Family history of breast cancer in maternal grandmother at age 60, breast cancer in paternal grandmother, and breast cancer in sister at age 55. Took hormonal contraceptives beginning at age 20. Took estrogen for 9 years. Physical Findings: A clinical breast exam by your physician is recommended on an annual basis and results should be correlated with mammographic findings. MG 3D Screening Mammo W/Cad Bilateral CC and MLO view(s) were taken. Prior study comparison: November 12, 2018, bilateral MG 3d screening mammo w/cad. October 30, 2017, bilateral MG 3d screening mammo w/cad. There are scattered fibroglandular densities. Finding #1: There is a new 4-5 mm circumscribed round mass located 5 cm from the nipple in the lower quadrant, anterior position of the right breast CC 8/67 and MLO 8/63. Finding #2: There are typically benign round, grouped/clustered calcifications in the anterior position of the right breast. There is a chronic nodularity in the right breast. ASSESSMENT: Incomplete: need additional imaging evaluation, BI-RAD 0 RECOMMENDATION: Ultrasound of the right breast. [facility] will attempt to contact patient to return for ultrasound.
== END | disposition home or self-care (01) ==
LOC: RADMAMWWP 16:15
PROVIDERS: ATTEND Family Medicine
DX: Z12.31 Encounter for screening mammogram for malignant neoplasm of breast (principal)
CPT/HCPCS: 77063; 77067

== ENCOUNTER → 2019-11-30 | Outpatient (CLI) | payer OTHER ==
--- NOTE | 2019-11-30 19:43 | CT ---
EXAMINATION TYPE: CT shoulder RT wo con DATE OF EXAM: 11/30/2019 COMPARISON: None. HISTORY: chronic right shoulder pain CT DLP: 345.2 mGycm Automated exposure control for dose reduction was used. FINDINGS: Mild to moderate narrowing and moderate superior capsular hypertrophy at acromioclavicular joint. Sli ght type II downsloping acromion. Some loss of underlying fat plane at both levels, correlate for und erlying impingement. Rotator cuff muscle bulk is maintained. Glenohumeral joint shows fairly moderate narrowing superiorly. No significant spurring. The visualized ribs are intact. Visualized right lung is clear. Scapula grossly unremarkable. IMPRESSION: As above.
== END | disposition home or self-care (01) ==
LOC: RADCTMAIN 16:25
PROVIDERS: ATTEND Psychiatry & Neurology Pain Medicine
DX: M25.811 Other specified joint disorders, right shoulder (principal); G89.29 Other chronic pain

== ENCOUNTER → 2020-11-23 | Outpatient (CLI) | payer BC ==
--- NOTE | 2020-11-27 08:20 | MM ---
Reason for exam: screening (asymptomatic). Last mammogram was performed 1 year ago. History: Patient is postmenopausal. Family history of breast cancer in maternal grandmother at age 60, breast cancer in paternal grandmother, and breast cancer in sister at age 55. Took hormonal contraceptives beginning at age 20. Took estrogen for 9 years. Physical Findings: A clinical breast exam by your physician is recommended on an annual basis and results should be correlated with mammographic findings. MG 3D Screening Mammo W/Cad Bilateral CC and MLO view(s) were taken. Prior study comparison: November 22, 2019, bilateral MG 3d screening mammo w/cad. November 12, 2018, bilateral MG 3d screening mammo w/cad. There are scattered fibroglandular densities. No significant changes when compared with prior studies. ASSESSMENT: Benign, BI-RAD 2 RECOMMENDATION: Routine screening mammogram of both breasts in 1 year.
== END | disposition home or self-care (01) ==
LOC: RADMAMWWP 09:05
PROVIDERS: ATTEND Family Medicine
DX: Z12.31 Encounter for screening mammogram for malignant neoplasm of breast (principal); Z78.0 Asymptomatic menopausal state; Z80.3 Family history of malignant neoplasm of breast
CPT/HCPCS: 77063; 77067

== ENCOUNTER → 2022-12-25 | Outpatient (CLI) | payer MEDICARE ==
--- NOTE | 2022-12-27 16:29 | MM ---
Reason for Exam: Screening (asymptomatic). Last mammogram was performed 2 year(s) and 1 month(s) ago. Patient History: Menarche at age 12. First Full-Term at age 19. Right ovary removed at age 37. Hysterectomy at age 37. Postmenopausal. Patient used Estrogen for 9 years. Hormonal Contraceptives, from age 20 until age 37. Paternal grandmother had breast cancer. Maternal grandmother had breast cancer, age 60. Sister had breast cancer, age 55. Risk Values: Kathie 5 year model risk: 3.1%. NCI Lifetime model risk: 10.5%. Prior Study Comparison: 11/12/2018 Bilateral Screening Mammogram, [facility]. 11/22/2019 Bilateral Screening Mammogram, [facility]. 11/23/2020 Bilateral Screening Mammogram, [facility]. Tissue Density: There are scattered fibroglandular densities. Findings: Analyzed By CAD. Chronic nodularity anterior right breast. Nodularity along the retroareolar plane on the left MLO view appears new. Unclear if this corresponds to more chronic appearing nodularity lateral anterior left cc view. Further evaluation is recommended with 3-D imaging. Otherwise, no significant change. Overall Assessment: Incomplete: need additional imaging evaluation, BI-RAD 0 Management: Special View Mammogram of the left breast. Diagnostic Breast Ultrasound of the left breast. Additional views to include spot 3-D MLO, 3-D lateral, and 3-D CC rolled medial views. Targeted left breast ultrasound for a persisting abnormality. [facility] will attempt to contact patient to return for supplemental views and ultrasound if indicated. Electronically signed and approved by: Jeanmarie Preciado M.D. Radiologist
== END | disposition home or self-care (01) ==
LOC: RADMAMWWP 13:15
PROVIDERS: ATTEND Family Medicine
DX: Z12.31 Encounter for screening mammogram for malignant neoplasm of breast (principal); Z78.0 Asymptomatic menopausal state; Z80.3 Family history of malignant neoplasm of breast
CPT/HCPCS: 77067

== ENCOUNTER → 2023-01-05 | Outpatient (CLI) | payer MEDICARE ==
--- NOTE | 2023-01-05 14:07 | MM ---
Reason for Exam: Additional evaluation requested from abnormal screening. Last screening mammogram was performed less than 1 month ago. Patient History: Menarche at age 12. First Full-Term at age 19. Right ovary removed at age 37. Hysterectomy at age 37. Postmenopausal. Patient used Estrogen for 9 years. Hormonal Contraceptives, from age 20 until age 37. Paternal grandmother had breast cancer. Maternal grandmother had breast cancer, age 60. Sister had breast cancer, age 55. Risk Values: Kathie 5 year model risk: 3.1%. NCI Lifetime model risk: 10.5%. Prior Study Comparison: 11/22/2019 Bilateral Screening Mammogram, [facility]. 11/23/2020 Bilateral Screening Mammogram, [facility]. 12/25/2022 Bilateral MG screening mammo w CAD, [facility]. Tissue Density: Left: The breast tissue is almost entirely fat. Findings: Analyzed By CAD. Nodular density in the anterior lateral inferior aspect 4.2 cm from the nipple on lateral medial view and 3.8 cm from the nipple on CC view. This measures up to 9 mm and is in the anterior depth. Overall Assessment: Incomplete: need additional imaging evaluation, BI-RAD 0 Management: Diagnostic Breast Ultrasound of the left breast. Results were given to the patient verbally at the time of exam. Patient should continue monthly self-breast exams. A clinical breast exam by your physician is recommended on an annual basis. This exam should not preclude additional follow-up of suspicious palpable abnormalities. Note on Kathie scores and lifetime risk: 1. A Kathie score greater than 3% is considered moderate risk. If this is the case, consider specialist referral to assess eligibility for a risk reducing agent. 2. If overall lifetime risk for the development of breast cancer is 20% or higher, the patient may qualify for future screening with alternating mammogram and breast MRI. Electronically signed and approved by: Jabari Velazquez DO
--- NOTE | 2023-01-05 14:46 | USB ---
Reason for Exam: Additional evaluation requested from abnormal screening. Patient History: Menarche at age 12. First Full-Term at age 19. Right ovary removed at age 37. Hysterectomy at age 37. Postmenopausal. Patient used Estrogen for 9 years. Hormonal Contraceptives, from age 20 until age 37. Paternal grandmother had breast cancer. Maternal grandmother had breast cancer, age 60. Sister had breast cancer, age 55. Risk Values: Kathie 5 year model risk: 3.1%. NCI Lifetime model risk: 10.5%. Technique: Method: Targeted. Prior Study Comparison: 11/22/2019 Bilateral Screening Mammogram, [facility]. 11/23/2020 Bilateral Screening Mammogram, [facility]. 12/25/2022 Bilateral MG screening mammo w CAD, [facility]. Findings: The lower outer quadrant of the left breast, the axilla of the left breast and the retroareolar of the left breast were scanned. Technique utilized:US breast workup limited LT Image; Ultrasound imaging of: Area of concern, retroareolar region and axilla. Area that may correspond with mammogram is identified at 4:00 3 cm from the nipple which is hypoechoic with hyperechoic outline measuring 9 x 4 x 10 mm. Findings could represent dense tissue given its well demarcated borders. The lesion is parallel with the surrounding tissue no posterior acoustic features. Overall Assessment: Probably benign, BI-RAD 3 Management: Diagnostic Breast Ultrasound of the left breast in 3 months. A clinical breast exam by your physician is recommended on an annual basis and results should be correlated with mammographic findings. This exam should not preclude additional follow-up of suspicious palpable abnormalities. Results were given to the patient verbally at the time of exam. Electronically signed and approved by: Jabari Velazquez DO
== END | disposition home or self-care (01) ==
LOC: RADMAMWWP 13:40
PROVIDERS: ATTEND Family Medicine
DX: R92.8 Other abnormal and inconclusive findings on diagnostic imaging of breast (principal); Z80.3 Family history of malignant neoplasm of breast; Z78.0 Asymptomatic menopausal state
CPT/HCPCS: 77065; 76642; G0279; 77061

== ENCOUNTER → 2023-04-07 | Outpatient (CLI) | payer MEDICARE ==
--- NOTE | 2023-04-07 10:16 | USB ---
Reason for Exam: Follow-up at short interval from prior study. Patient History: Menarche at age 12. First Full-Term at age 19. Right ovary removed at age 37. Hysterectomy at age 37. Postmenopausal. Patient used Estrogen for 9 years. Hormonal Contraceptives, from age 20 until age 37. Paternal grandmother had breast cancer. Maternal grandmother had breast cancer, age 60. Sister had breast cancer, age 55. Risk Values: Kathie 5 year model risk: 3.1%. NCI Lifetime model risk: 10.5%. Technique: Method: Targeted. Prior Study Comparison: 11/23/2020 Bilateral Screening Mammogram, [facility]. 12/25/2022 Bilateral MG screening mammo w CAD, [facility]. 01/05/2023 Left MG 3D work up w/cad , [facility]. Findings: The lower outer quadrant of the left breast, the axilla of the left breast and the retroareolar of the left breast were scanned. Targeted ultrasound lower outer quadrant left breast 3:00 to 6:00 position including the subareolar region and axilla. There is redemonstration of an oval mixed echo lesion redemonstrated 4:00 left breast 3 cm from the nipple. This measures 9 x 3 x 6 mm, not significantly changed from prior exam. Given persistence and possible mammographic correlate, tissue sampling is recommended. No other solid or cystic lesion or axillary lymphadenopathy. Overall Assessment: Suspicious, BI-RAD 4 Management: Ultrasound Core Biopsy of the left breast. Postbiopsy mammogram with clip placement to ensure biopsy was performed of the mammographic correlate. Results were given to the patient verbally at the time of exam. Electronically signed and approved by: Jeanmarie Preciado M.D. Radiologist
== END | disposition home or self-care (01) ==
LOC: RADMAMWWP 09:33
PROVIDERS: ATTEND Family Medicine
DX: R92.8 Other abnormal and inconclusive findings on diagnostic imaging of breast (principal); Z80.3 Family history of malignant neoplasm of breast; Z78.0 Asymptomatic menopausal state

== ENCOUNTER → 2023-04-27 | Day surgery (SDC) | payer MEDICARE ==
--- NOTE | 2023-04-30 14:48 | MM ---
Reason for Exam: Post Procedure Mammogram. Last screening mammogram was performed 4 month(s) ago. Patient History: Menarche at age 12. First Full-Term at age 19. Right ovary removed at age 37. Hysterectomy at age 37. Postmenopausal. Patient used Estrogen for 9 years. Hormonal Contraceptives, from age 20 until age 37. Paternal grandmother had breast cancer. Maternal grandmother had breast cancer, age 60. Sister had breast cancer, age 55. Risk Values: Kathie 5 year model risk: 3.1%. NCI Lifetime model risk: 10.5%. Prior Study Comparison: 11/23/2020 Bilateral Screening Mammogram, [facility]. 12/25/2022 Bilateral MG screening mammo w CAD, [facility]. 01/05/2023 Left MG 3D work up w/cad , [facility]. Tissue Density: Left: There are scattered fibroglandular densities. Pathology Description: Location: 4 o'clock. Marker Left Behind. Needle Type: Mammotome Cores: 4 Skin Nicks: 1 Gauge: 13 The procedure of ultrasound guided core biopsy was explained to the patient. Benefits, alternatives, and risks were discussed. An informed consent was then obtained. A timeout was performed. The patient was placed in supine positioning for imaging and for the procedure. The overlying skin was prepped and draped in usual sterile fashion. Lidocaine was used as anesthetic into the skin and subcutaneous tissue up to area of concern in the 4:00 position 3 cm in the nipple left breast. A small skin alexander was made with surgical scalpel. Under ultrasound guidance, a 12-gauge vacuum assisted biopsy gun device was used to obtain 4 core samples. A biopsy clip was left in lesion. Hydromark coil core marker was placed. The patient tolerated the procedure well without any immediate complication. The patient was kept in the radiology department for short stay after the procedure and then discharged home in stable condition. Postprocedure mammogram: The patient was transferred to mammography for physician ordered post procedure mammogram for clip placement verification. Impression: Successful ultrasound guided core biopsy of area of concern in the left breast, full pathology results to follow. Recommendations: 1. Recommendations are pending pathology results. Pathology Results: Result: Benign, Ductal hyperplasia, Usual. LEFT BREAST, 4:00 POSITION, ULTRASOUND GUIDED CORE BIOPSY: Stromal fibrosis with moderate to florid usual ductal hyperplasia (see note). Notes It is noted there is a 04/07/23 ultrasound report which states there is an oval lesion at the 4:00 position of the left breast, 3 cm from the nipple, which measures 9 x 3 x 6 mm. Examination reveals nodular and hypocellular stromal fibrosis with areas of usual ductal hyperplasia. Differential diagnosis considerations for the features seen include a fibrotic scar, benign pseudoangiomatous stromal hyperplasia and fibroadenoma. Correlation with imaging studies is suggested, as indicated. Overall Assessment: Benign Assessment: MG diagnostic mammo LT wo CAD. - Left: Benign, BI-RAD 2. Management: Diagnostic Mammogram of the left breast in 6 months. Electronically signed and approved by: Jian Altamirano D.O. Radiologis
== END ==
LOC: RADUSWWP 12:37
PROVIDERS: ATTEND Family Medicine
DX: N60.32 Fibrosclerosis of left breast (principal); Z80.3 Family history of malignant neoplasm of breast; Z78.0 Asymptomatic menopausal state; Z90.721 Acquired absence of ovaries, unilateral
CPT/HCPCS: 88305; 77065; 19083; A4648

== ENCOUNTER → 2023-06-19 | Outpatient (CLI) | payer MEDICARE ==
--- NOTE | 2023-06-25 12:17 | HM ---
HOLTER MONITOR REPORT This is a 24-hour Holter. INDICATION: Dizziness. FINDINGS: Underlying rhythm is sinus with an average heart rate of 77 beats per minute. Heart rate varied from 56 beats per minute to 129 beats per minute. No significant cardiac arrhythmia is noted. There were no episodes of atrial fibrillation, pauses more than 2.5 seconds, occasional PVCs are noted. CONCLUSIONS: Sinus rhythm with occasional PVCs. MMODL / IJN: [id number] /
== END | disposition home or self-care (01) ==
LOC: RADECHMAIN 10:11
PROVIDERS: ATTEND Family Medicine
DX: R42 Dizziness and giddiness (principal)
CPT/HCPCS: 93225; 93226

== ENCOUNTER → 2023-07-30 | Outpatient (CLI) | payer MEDICARE ==
--- NOTE | 2023-07-30 14:03 | XR ---
EXAMINATION TYPE: XR cervical spine comp DATE OF EXAM: 07/30/2023 COMPARISON: NONE HISTORY: Pain TECHNIQUE: Four views are submitted. FINDINGS: The odontoid is intact. There are no compression deformities. The prevertebral soft tissue structur es are within normal limits. There is straightening the cervical spine with grade 1 anterolisthesis C 3-4 and C4-C5. Moderate degenerative disc disease C5-C6 and mild changes at C4-C5. Multilevel facet a rthropathy. Mild foraminal encroachment at multiple levels bilaterally. Mild diffuse osteopenia. IMPRESSION: 1. Multilevel degenerative disc disease and facet arthropathy most marked at C5-C6. 2. Grade 1 anterolisthesis C3-C4 and C4-C5 likely degenerative..
--- NOTE | 2023-07-31 09:56 | CA ---
Transthoracic Echo Report Name: Cheyenne Holman Age: 67 Gender: F : 1955 Exam Date: 07/30/2023 13:32 Exam Location: [facility] Ht (in): 65 Wt (lb): 170 Ordering Physician: Chuy Amaral MD Attending/Referring Phys: Mariely Evans [facility] Psychologist Mona Mendez RCS Procedure CPT: Indications: R42 DIZZINESS Z86.79 RHEUMATIC FEVER Cardiac Hx: Technical Quality: Good Contrast 1: Total Dose (mL): Contrast 2: Total Dose (mL): MEASUREMENTS (Male / Female) Normal Values 2D ECHO LV Diastolic Diameter PLAX 3.4 cm 4.2 - 5.9 / 3.9 - 5.3 cm LV Systolic Diameter PLAX 2.3 cm IVS Diastolic Thickness 1.0 cm 0.6 - 1.0 / 0.6 - 0.9 cm LVPW Diastolic Thickness 0.9 cm 0.6 - 1.0 / 0.6 - 0.9 cm LV Relative Wall Thickness 0.6 RV Internal Dim ED PLAX 2.4 cm LVOT Diameter 2.2 cm LV Diastolic Volume MOD BP 89.2 cm??? 67 - 155 / 56 - 104 cm??? LV Systolic Volume MOD BP 34.3 cm??? 22 - 58 / 19 - 49 cm??? LV Ejection Fraction MOD BP 61.6 % >= 55 % LV Cardiac Index MOD BP 2253.9 cm???/min???m??? LV Diastolic Volume MOD 4C 97.3 cm??? LV Systolic Volume MOD 4C 36.8 cm??? LV Ejection Fraction MOD 4C 62.2 % LV Cardiac Index MOD 4C 2482.2 cm???/min???m??? LV Diastolic Length 4C 8.6 cm LV Systolic Length 4C 7.3 cm LV Diastolic Volume MOD 2C 77.6 cm??? LV Systolic Volume MOD 2C 29.1 cm??? LV Ejection Fraction MOD 2C 62.5 % LV Cardiac Index MOD 2C 1988.1 cm???/min???m??? LV Diastolic Length 2C 8.2 cm LV Systolic Length 2C 6.6 cm LA Volume 31.6 cm??? 18 - 58 / 22 - 52 cm??? LA Volume Index 16.6 cm???/m??? 16 - 28 cm???/m??? DOPPLER AV Peak Velocity 153.6 cm/s AV Peak Gradient 9.4 mmHg AV Mean Velocity 103.7 cm/s AV Mean Gradient 4.8 mmHg AV Velocity Time Integral 27.8 cm LVOT Peak Velocity 116.2 cm/s LVOT Peak Gradient 5.4 mmHg LVOT Velocity Time Integral 22.2 cm LVOT Stroke Volume 87.8 cm??? LVOT Stroke Volume Index 47.6 ml/m??? LVOT Cardiac Index 3602.2 cm???/min???m??? AV Area Cont Eq vti 3.2 cm??? AV Area Cont Eq pk 3.0 cm??? MV Area PHT 2.8 cm??? Mitral E Point Velocity 61.9 cm/s Mitral A Point Velocity 77.6 cm/s Mitral E to A Ratio 0.8 MV Deceleration Time 268.3 ms TR Peak Velocity 219.9 cm/s TR Peak Gradient 19.3 mmHg PV Peak Velocity 84.7 cm/s PV Peak Gradient 2.9 mmHg FINDINGS Left Ventricle Left ventricular ejection fraction is estimated at 60 %. Left ventricular wall thickness normal. Left ventricular cavity size normal. No obvious regional wall motion abnormalities. Right Ventricle Normal right ventricular size and function. Right ventricular systolic pressure within normal limits. Right Atrium Normal right atrial size. Left Atrium Normal left atrial size. Mitral Valve Mitral valve thickened. No evidence for mitral valve prolapse. No mitral stenosis. Trace mitral regurgitation. Aortic Valve Trileaflet aortic valve. No aortic stenosis. No aortic regurgitation. Tricuspid Valve Structurally normal tricuspid valve. No tricuspid stenosis. Trace tricuspid regurgitation. Pulmonic Valve Structurally normal pulmonic valve. No pulmonic stenosis. Trace pulmonic regurgitation. Pericardium No pericardial effusion. Aorta Normal size aortic root and proximal ascending aorta. CONCLUSIONS Normal LV size and systolic function. Minimal mitral and tricuspid insufficiency. No significant pulmonary hypertension. No pericardial effusion Previewed by: Dr. Ej Nazario MD (Electronically Signed) Final Date: 31 July 2023 09:55
== END | disposition home or self-care (01) ==
LOC: RADECHMAIN 13:23
PROVIDERS: ATTEND Family Medicine
DX: M50.122 Cervical disc disorder at C5-C6 level with radiculopathy (principal); I34.1 Nonrheumatic mitral (valve) prolapse; Z86.79 Personal history of other diseases of the circulatory system
CPT/HCPCS: 72050; 93306

== ENCOUNTER → 2023-10-29 | Outpatient (CLI) | payer MEDICARE ==
--- NOTE | 2023-11-02 10:49 | MM ---
Reason for Exam: Follow-up at short interval from prior study. Last screening mammogram was performed 10 month(s) ago. Patient History: Menarche at age 12. First Full-Term at age 19. Right ovary removed at age 37. Hysterectomy at age 37. Postmenopausal. Previous Hyperplasia w/o Atypia at age 67. Patient used Estrogen for 9 years. Hormonal Contraceptives, from age 20 until age 37. 04/27/2023, Benign US biopsy breast VAD LT on the left side. Paternal grandmother had breast cancer, age 60. Maternal grandmother had breast cancer at or over age 50. Sister had breast cancer, age 55. Risk Values: Kathie 5 year model risk: 3.7%. NCI Lifetime model risk: 11.8%. Prior Study Comparison: 12/25/2022 Bilateral MG screening mammo w CAD, [facility]. 01/05/2023 Left MG 3D work up w/cad LT, [facility]. 04/27/2023 Left MG diagnostic mammo LT wo CAD., [facility]. Tissue Density: Left: There are scattered areas of fibroglandular density. Findings: Analyzed By CAD. The pattern is symmetrical. Rounded oval density containing a coil marker is present and appears stable. No significant interval change is evident. No suspicious groups of microcalcifications, spiculated or lobular masses, architectural distortion or other secondary signs of malignancy are mammographically apparent. Screening mammography performed back on schedule bilateral breasts 3 months. Overall Assessment: Benign, BI-RAD 2 Management: Screening Mammogram of both breasts in 3 months. A negative mammogram report should not preclude additional follow up of suspicious palpable abnormalities. Patient should continue monthly self breast exam. A clinical breast exam by your physician is recommended on an annual basis and results should be correlated with mammographic findings. Note on Kathie scores and lifetime risk: 1. A Kathie score greater than 3% is considered moderate risk. If this is the case, consider specialist referral to assess eligibility for a risk reducing agent. 2. If overall lifetime risk for the development of breast cancer is 20% or higher, the patient may qualify for future screening with alternating mammogram and breast MRI. Electronically signed and approved by: Jian Altamirano D.O. Radiologis
== END | disposition home or self-care (01) ==
LOC: RADMAMWWP 14:31
PROVIDERS: ATTEND Family Medicine
DX: R92.8 Other abnormal and inconclusive findings on diagnostic imaging of breast (principal); R92.322 Mammographic fibroglandular density, left breast; Z78.0 Asymptomatic menopausal state; Z80.3 Family history of malignant neoplasm of breast
CPT/HCPCS: 77065; G0279; 77061

== ENCOUNTER → 2023-11-16 | Outpatient (CLI) | payer MEDICARE ==
--- NOTE | 2023-11-16 10:32 | US ---
EXAMINATION TYPE: US abdomen limited DATE OF EXAM: 11/16/2023 COMPARISON: NONE CLINICAL INDICATION: Female, 68 years old with history of K76.0 FATTY LIVER; TECHNIQUE: Multiple sonographic images of the right upper quadrant are obtained. FINDINGS: EXAM MEASUREMENTS: Liver Length: 15.7 cm Gallbladder Wall: 0.2 cm CBD: 0.5 cm Right Kidney: 7.7 x 3.7 x 3.7 cm Pancreas: visualized portions wnl, limited by overlying midline bowel gas Liver: scanned intercostally, mildly heterogeneous, attenuating, multiple small cysts seen Gallbladder: wnl Evidence for sonographic Loyola's sign: no CBD: visualized portions wnl, limited by overlying bowel gas Right Kidney: appears small in size IMPRESSION: 1. No evidence for acute process. 2. Mild hepatic steatosis with simple appearing cyst.
== END | disposition home or self-care (01) ==
LOC: RADUSWWP 08:32
PROVIDERS: ATTEND Family Medicine
DX: K76.0 Fatty (change of) liver, not elsewhere classified (principal)
CPT/HCPCS: 76705

== ENCOUNTER → 2024-02-02 | Outpatient (CLI) | payer MEDICARE ==
--- NOTE | 2024-02-02 13:44 | MM ---
Reason for Exam: Screening (asymptomatic). Last mammogram was performed 1 year(s) and 1 month(s) ago. Patient History: Menarche at age 12. First Full-Term at age 19. Right ovary removed at age 37. Hysterectomy at age 37. Postmenopausal. Previous Hyperplasia w/o Atypia at age 67. Patient used Estrogen for 9 years. Hormonal Contraceptives, from age 20 until age 37. 04/27/2023, Benign US biopsy breast VAD LT on the left side. Paternal grandmother had breast cancer, age 60. Maternal grandmother had breast cancer at or over age 50. Sister had breast cancer, age 55. Risk Values: Kathie 5 year model risk: 3.7%. NCI Lifetime model risk: 11.8%. Prior Study Comparison: 01/05/2023 Left MG 3D work up w/cad LT, [facility]. 04/27/2023 Left MG diagnostic mammo LT wo CAD., [facility]. 10/29/2023 Left MG 3D diag mammo w/cad LT, [facility]. Tissue Density: There are scattered areas of fibroglandular density. Findings: Analyzed By CAD. Left breast biopsy clip. Right breast: There is no suspicious group of microcalcifications or new suspicious mass. Left breast: There is no suspicious group of microcalcifications or new suspicious mass. Overall Assessment: Benign, BI-RAD 2 Management: Screening Mammogram of both breasts in [address] [facility] will attempt to contact patient to return for supplemental views and ultrasound if indicated. Patient should continue monthly self-breast exams. A clinical breast exam by your physician is recommended on an annual basis. This exam should not preclude additional follow-up of suspicious palpable abnormalities. Note on Kathie scores and lifetime risk: 1. A Kathie score greater than 3% is considered moderate risk. If this is the case, consider specialist referral to assess eligibility for a risk reducing agent. 2. If overall lifetime risk for the development of breast cancer is 20% or higher, the patient may qualify for future screening with alternating mammogram and breast MRI. [facility], , 02/02/2024 1:42 PM. Electronically signed and approved by: Jabari Velazquez DO
--- NOTE | 2024-02-03 08:13 | BD ---
EXAMINATION TYPE: Axial Bone Density DATE OF EXAM: 02/02/2024 CLINICAL HISTORY: 68 years old Female. ICD-10 CODE: M810 AGE RELATED OSTEO Height: 65 Weight: 177 FRAX RISK QUESTIONS: Family History (Parent hip fracture): yes History of Fracture in Adulthood: no Secondary Osteoporosis: yes 3. Menopause before 45: 37 total hyst RISK FACTORS HISTORY OF: Surgery to Spine/Hip(right/left)/Wrist (right/left): no MEDICATIONS: Thyroid Medications: yes Which medication: Levothyroxine synthroid How Lon+ years Osteoporosis Medications: no EXAM MEASUREMENTS: Bone mineral densitometry was performed using the [employer] System. Bone mineral density as measured about the Lumbar spine is: ----- L1-L4(G/cm2): 0.950 T Score Values are as follows: ----- L1: -2.4 ----- L2: -2.3 ----- L3: -1.6 ----- L4: -1.7 ----- L1-L4: -1.9 Z Score Values are as follows: ----- L1: -1.2 ----- L2: -1.2 ----- L3: -0.4 ----- L4: -0.6 ----- L1-L4: -0.8 Bone mineral density baseline Bone mineral density about the R hip (g/cm2): 0.863 Bone mineral density about the L hip (g/cm2): 0.903 T Score values are as follows: -----R Neck: -1.6 -----L Neck: -1.7 -----R Total: -1.2 -----L Total: -0.8 Z Score values are as follows: -----R Neck: -0.4 -----L Neck: -0.5 -----R Total: -0.2 -----L Total: 0.2 Bone mineral density baseline FRAX%s: The graph provided illustrates a 10.1% chance for a major osteoporotic fx and a 1.5% chance f or the hips probability for fx in 10 years time. IMPRESSION: Osteopenia (T Score between -2.5 and -1). There is slightly increased risk of fracture and the patient may be considered for treatment. Re-Screen 2-5 years. NOTE: T-SCORE=SD OF THE YOUNG ADULT MEAN. [facility], , 02/03/2024 8:10 AM
--- NOTE | 2024-02-04 10:00 | US ---
EXAMINATION TYPE: US kidneys/renal and bladder DATE OF EXAM: 02/02/2024 COMPARISON: 11/16/2023 CLINICAL INDICATION: Female, 68 years old with history of N27.9 SMALL KIDNEY; Incontinence; HTN; [place] ent denies any other signs, symptoms, or relevant history TECHNIQUE: Grayscale and color Doppler imaging of the bilateral kidneys and urinary bladder: FINDINGS: EXAM MEASUREMENTS: Right Kidney: 8.1 x 3.8 x 5.0 cm Left Kidney: 5.6 x 5.9 x 4.9 cm Post Void Residual Volume: NA mL Right Kidney: wnl Left Kidney: Limited visualization due to bowel gas and rib shadowing Bladder: WNL Bilateral Jets seen: Yes Normal Post Void Residual: NA There is no evidence for hydronephrosis at this point in time. No nephrolithiasis is seen. No demetrius s are identified. The urinary bladder is anechoic. Bilateral ureteral jets are seen. IMPRESSION: No evidence for acute process., Limited evaluation left kidney. [facility], , 02/04/2024 9:58 AM
== END ==
LOC: RADUSWWP 12:18
PROVIDERS: ATTEND Family Medicine
DX: N27.9 Small kidney, unspecified
CPT/HCPCS: 76770; 77063; 77067; 77080